=== PATIENT | female | born 1970 | race Hispanic/Latino ===

== ENCOUNTER 2018-04-15 07:37 | Outpatient (CLI) | payer BC, MEDICARE ==
--- NOTE | 2018-04-15 14:04 | Mammography Report ---
BILATERAL DIGITAL SCREENING MAMMOGRAM with CAD: 04/15/18 CLINICAL: Routine screening. COMPARISON:None available. However, a prior mammogram was apparently done at [facility]. FINDINGS: The breasts are heterogeneously dense, which may obscure small masses. A leftasymmetry on the CC view requires comparison with a prior mammogram or additional imaging.No architectural distortion or suspicious calcifications.The right breast is negative. IMPRESSION: Left asymmetry requiring further evaluation. BI-RADS CATEGORY: 0 -- Additional Evaluation Required RECOMMENDATION: Comparison with a previous mammogram. We will attempt to obtain a prior mammogram for comparison. If we do not obtain a prior mammogram within 30 days, a revised report will be issued recommending a recall for additional imaging. Please be advised that the patient should not schedule an appointment for return until adequate time (at least 2 weeks) has passed for us to obtain the prior mammogram. ACR BI-RADS MAMMOGRAPHIC CODES: 0 = Needs additional imaging evaluation; 1 = Negative; 2 = Benign; 3 = Probably benign; 4 = Suspicious; 5 = Malignant; 6 = Known biopsy-proven malignancy COMMENT: 1. Dense breast tissue, i.e., adenosis, fibrocystic changes, etc., may obscure an underlying neoplasm. 2. Approximately 10% of cancers are not detected with mammography. 3. A negative mammography report should not delay biopsy if a clinically suspicious mass is present. COMMENT: Patient follow-up letters are generated via our [employer] application.
== END 2018-04-15 07:38 | disposition home or self-care (01) ==
LOC: MAMMO 07:37
PROVIDERS: ATTEND Internal Medicine
DX: Z12.31 Encounter for screening mammogram for malignant neoplasm of breast (principal); M19.90 Unspecified osteoarthritis, unspecified site
CPT/HCPCS: 77067

== ENCOUNTER 2018-04-27 08:12 | Outpatient (CLI) | payer BC, MEDICARE ==
--- NOTE | 2018-04-27 08:47 | Mammography Report ---
LEFT DIGITAL DIAGNOSTIC MAMMOGRAM : 04/27/18 08:12:00 CLINICAL: Recalled for asymmetry. COMPARISON:04/15/18 screening FINDINGS: Additional mammographic views were performed and are negative. IMPRESSION: Negative Mammogram. BI-RADS CATEGORY: 1 -- Negative RECOMMENDATION: Routine mammographic screening in one year. ACR BI-RADS MAMMOGRAPHIC CODES: 0 = Needs additional imaging evaluation; 1 = Negative; 2 = Benign; 3 = Probably benign; 4 = Suspicious; 5 = Malignant; 6 = Known biopsy-proven malignancy COMMENT: 1. Dense breast tissue, i.e., adenosis, fibrocystic changes, etc., may obscure an underlying neoplasm. 2. Approximately 10% of cancers are not detected with mammography. 3. A negative mammography report should not delay biopsy if a clinically suspicious mass is present. COMMENT: Patient follow-up letters are generated via our [employer] application.
== END 2018-04-27 08:13 | disposition home or self-care (01) ==
LOC: MAMMO 08:12
PROVIDERS: ATTEND Internal Medicine
DX: R92.8 Other abnormal and inconclusive findings on diagnostic imaging of breast (principal); M19.90 Unspecified osteoarthritis, unspecified site; Z87.891 Personal history of nicotine dependence
CPT/HCPCS: 77066

== ENCOUNTER 2019-02-25 09:26 | Outpatient (CLI) | payer BC, MEDICARE ==
[2019-02-25 13:34] LABS: Basophils # (Auto) 0.1 K/mm3 (0.0-0.1); Basophils % (Auto) 2.1 % (0.0-1.8); Eosinophils # (Auto) 0.1 K/mm3 (0.0-0.4); Eosinophils % (Auto) 2.4 % (0.0-4.3); Hematocrit 40.2 % (30.3-42.9); Hemoglobin 13.7 gm/dl (10.1-14.3); Lymphocytes # (Auto) 1.8 K/mm3 (1.2-5.4); Lymphocytes % (Auto) 35.1 % (13.4-35.0); Mean Corpuscular HGB Conc 34 % (30-34); Mean Corpuscular Volume 92 fl (79-97); Monocytes # (Auto) 0.4 K/mm3 (0.0-0.8); Monocytes % (Auto) 8.5 % (0.0-7.3); Platelet Count 264 K/mm3 (140-440); Red Blood Count 4.37 M/mm3 (3.65-5.03); Red Cell Distribution Width 13.6 % (13.2-15.2)
[2019-02-25 14:24] LABS: Alanine Aminotransferase 9 units/L (7-56); Albumin 4.7 g/dL (3.9-5); BUN/Creatinine Ratio 10; Blood Urea Nitrogen 7 mg/dL (7-17); Calcium 9.8 mg/dL (8.4-10.2); Chol/HDL Ratio 4.85 %; HDL Cholesterol 60 mg/dL (40-59); Hemolysis Index 5; LDL Cholesterol,Direct 217 mg/dL (50-130)
[2019-03-01 13:19] LABS: Vitamin D, 25-OH, D2 <4 ng/mL
== END 2019-02-25 09:27 | disposition home or self-care (01) ==
LOC: LAB 09:26
PROVIDERS: ATTEND Internal Medicine
DX: Z13.29 Encounter for screening for other suspected endocrine disorder (principal); D51.9 Vitamin B12 deficiency anemia, unspecified; E55.9 Vitamin D deficiency, unspecified; R73.03 Prediabetes; E78.2 Mixed hyperlipidemia
CPT/HCPCS: 36415; 80053; 80061; 82306; 82607; 83036; 84443; 85025

== ENCOUNTER 2019-05-18 10:59 | Outpatient (CLI) | payer MEDICARE ==
--- NOTE | 2019-05-18 11:38 | XRay Report ---
CHEST 2 VIEWS INDICATION / CLINICAL INFORMATION: R05 COUGH. COMPARISON: None available. FINDINGS: SUPPORT DEVICES: None. HEART / MEDIASTINUM: No significant abnormality. LUNGS / PLEURA: No significant pulmonary or pleural abnormality. No pneumothorax. ADDITIONAL FINDINGS: No significant additional findings. IMPRESSION: No significant abnormality Signer Name: Lowell Fry MD FACR Signed: 05/18/2019 11:33 AM Workstation Name: [email or web address]
== END 2019-05-18 11:00 | disposition home or self-care (01) ==
LOC: XRAY 10:59
PROVIDERS: ATTEND Internal Medicine
DX: R05 Cough (principal)
CPT/HCPCS: 71046

== ENCOUNTER 2021-04-05 09:04 | Outpatient (CLI) | payer MEDICARE ==
[2021-04-05 09:50] LABS: Chol/HDL Ratio 3.3 %
== END 2021-04-05 09:05 | disposition home or self-care (01) ==
LOC: LAB 09:04
PROVIDERS: ATTEND Internal Medicine
DX: E78.2 Mixed hyperlipidemia (principal)
CPT/HCPCS: 36415; 80061

== ENCOUNTER 2021-04-26 08:13 | Outpatient (CLI) | payer MEDICARE ==
[2021-04-26 09:31] LABS: Basophils # (Auto) 0.1 K/mm3 (0.0-0.1); Eosinophils # (Auto) 0.1 K/mm3 (0.0-0.4); Eosinophils % (Auto) 2.5 % (0.0-4.3); Hemoglobin 13.3 gm/dl (10.1-14.3); Lymphocytes # (Auto) 1.9 K/mm3 (1.2-5.4); Lymphocytes % (Auto) 37.7 % (13.4-35.0); Mean Corpuscular HGB Conc 33 % (30-34); Mean Corpuscular Volume 95 fl (79-97); Monocytes # (Auto) 0.3 K/mm3 (0.0-0.8); Platelet Count 261 K/mm3 (140-440); Red Blood Count 4.23 M/mm3 (3.65-5.03); Red Cell Distribution Width 12.7 % (13.2-15.2)
[2021-04-26 09:48] LABS: Alanine Aminotransferase 10 units/L (7-56); Albumin 4.2 g/dL (3.9-5); Blood Urea Nitrogen 13 mg/dL (7-17); Calcium 9.8 mg/dL (8.4-10.2); Hemolysis Index 4
[2021-04-26 10:39] LABS: BUN/Creatinine Ratio 26
--- NOTE | 2021-04-26 11:44 | Mammography Report ---
DIGITAL SCREENING MAMMOGRAM WITH CAD, 04/26/2021 CLINICAL INFORMATION / INDICATION: Routine screening mammography. SCREENING MAMMOGRAM TECHNIQUE: Digital bilateral 2D mammography was obtained in the craniocaudal and mediolateral obliqu e projections. This examination was interpreted with the benefit of Computer-Aided Detection analysis . COMPARISON: 04/15/18 FINDINGS: Breast Density: The breasts are heterogeneously dense, which may obscure small masses. No dominant mass, suspicious calcifications, or architectural distortion in the right breast. Left breast nodule with round shape, circumscribed margins, and equal density. Size is 0.45 cm. Locat ion is 12 o'clock. Depth is middle. Distance from Nipple (cm) is 7.4 cm on the CC view. Nodule is new since 2018. IMPRESSION: Left breast nodule is indeterminate. Recommendation: Left breast ultrasound. Follow up recommendation: Ultrasound BI-RADS Category 0: INCOMPLETE. Needs additional imaging evaluation and/or prior mammograms for felipa rison. A "normal" or negative report should not discourage follow up or biopsy of a clinically significant f inding. A written summary of these findings will be mailed to the patient. The patient will be entered into a mammography reporting system which will generate a reminder letter for the patient's next appointmen t at the appropriate interval. The [employer] recommends yearly mammograms starting at age 40 and continuing as l isabel as a woman is in good health. Breast MRI is recommended for women with an approximate 20-25% or greater lifetime risk of breast cancer, including women with a strong family history of breast or ova millicent cancer or who have been treated for Hodgkin's disease. Signer Name: Concepcion Acevedo MD Signed: 04/26/2021 11:40 AM Workstation Name: [email or web address]
== END 2021-04-26 08:14 | disposition home or self-care (01) ==
LOC: MAMMO 08:13
PROVIDERS: ATTEND Internal Medicine
DX: Z12.31 Encounter for screening mammogram for malignant neoplasm of breast (principal); Z00.00 Encounter for general adult medical examination without abnormal findings; R73.03 Prediabetes; E55.9 Vitamin D deficiency, unspecified; R53.83 Other fatigue
CPT/HCPCS: 36415; 77067; 80053; 82306; 83036; 84443; 85025

== ENCOUNTER 2021-08-28 07:03 | Outpatient (CLI) | payer MEDICARE ==
--- NOTE | 2021-08-28 08:30 | Ultrasound Report ---
ULTRASOUND BREAST LEFT LIMITED, 08/28/2021 CLINICAL INFORMATION / INDICATION: 50-year-old female presents for evaluation of abnormal left screen ing mammogram.. TECHNIQUE: Targeted ultrasound evaluation was performed of the area of interest. COMPARISON: Prior mammogram 04/26/2021 FINDINGS: Sonographic evaluation of the left breast at 12:00 demonstrates a hypoechoic round mass measuring 5 x 4 mm, 6 cm from nipple. It is unclear if this is a solid nodule or complicated cyst. This nodule jain s correlate with mammographic abnormality noted on screening mammogram. Recommend further evaluation with cyst aspiration. If mass does not completely resolve with aspiration, ultrasound-guided biopsy s hould be performed. IMPRESSION: 5 mm hypoechoic mass left breast 12:00. Differential diagnosis includes solid mass versus complicated cyst. Recommend cyst aspiration. If mass does not completely resolve with aspiration, ul trasound-guided biopsy should be performed at that time. Follow up recommendation: Biopsy BI-RADS Category 4: SUSPICIOUS FOR MALIGNANCY. A normal or "negative" report should not preclude biopsy or follow-up of a clinically suspicious find ing. Signer Name: Precious Herrera MD Signed: 08/28/2021 8:09 AM Workstation Name: [email or web address]
== END 2021-08-28 07:04 | disposition home or self-care (01) ==
LOC: US 07:03
PROVIDERS: ATTEND Internal Medicine
DX: N63.21 Unspecified lump in the left breast, upper outer quadrant (principal)

== ENCOUNTER 2021-11-06 09:52 | Emergency (ER) | payer MEDICARE ==
[2021-11-06] MEDS ORDERED: oxyCODONE /ACETAMINOPHEN 5-325MG TAB PO ONE (11:31)
--- NOTE | 2021-11-06 11:31 | Emergency Department Report ---
Stated Complaint: RIGHT KNEE SWOLLEN/BRUISE Time Seen by Provider: 11/06/21 11:28 - HPI History of Present Illness: States that she fell last night and twisted her right knee. States that she has been unable to ambulate on it since then. Presents with pain and swelling to right knee area. - ROS Review of Systems: Right knee pain warmth, swelling, and decreased range of motion. - Exam Physical Exam: Right knee pain and swelling. Distal pulses intact. MSE screening note: Focused history and physical exam performed. Due to findings the following was ordered: Right knee x-ray. Patient will be evaluated in the back by a provider when she goes to room in the back. ED Disposition for MSE Condition: Stable
[2021-11-06 11:42] VITALS: BP 150/82
--- NOTE | 2021-11-06 12:22 | XRay Report ---
RIGHT TIBIA/FIBULA 4 VIEWS INDICATION / CLINICAL INFORMATION: Pain and swelling of right knee/leg after fall. COMPARISON: None available. FINDINGS: BONES and JOINT(S): There are acute fractures of the upper and lower poles of the patella without sig nificant displacement along the lower pole and with mild displacement noted along the upper pole. No dislocation. SOFT TISSUES: Moderate generalized edema is noted with a small joint effusion. ADDITIONAL FINDINGS: None. IMPRESSION: 1. Acute right patellar fractures with associated edema and a small joint effusion. RIGHT KNEE 3 VIEWS INDICATION / CLINICAL INFORMATION: Pain and swelling of right knee/leg after fall. COMPARISON: None available. FINDINGS: BONES and JOINT(S): Acute patellar fractures as above. No other acute fracture or dislocation. No sig nificant arthritis. SOFT TISSUES: Moderate edema of the knee without other significant abnormalities of the soft tissues of the leg. ADDITIONAL FINDINGS: None. IMPRESSION: 1. No acute abnormality of the right tibia/fibula. Signer Name: Jerrell Mcgregor MD Signed: 11/06/2021 12:17 PM Workstation Name: [id number]
--- NOTE | 2021-11-06 13:41 | Emergency Department Report ---
ED Lower Extremity HPI - General Chief Complaint: Extremity Injury, Lower Stated Complaint: RIGHT KNEE SWOLLEN/BRUISE Time Seen by Provider: 11/06/21 11:28 Source: patient Mode of arrival: Wheelchair Limitations: Physical Limitation - History of Present Illness Initial Comments: Patient is a 51-year-old female with a history of bipolar disorder and anxiety who presents to the ED with complaint of acute onset persistent right knee pain and swelling after she lost balance and fell down landing on the right knee 12 hours ago. Patient states that she has not been able to bear weight on the right leg because of worsening right knee pain. Patient denies dizziness, syncope, head or neck injuries, lightheadedness, chest pain or shortness of breath, abdominal pain, low back pain, hip pain, numbness and tingling or weakness of lower extremities bilaterally. MD Complaint: knee injury (right fall), fall -: Sudden, hour(s) (12) Injury: Knee: Right (pain) Type of Injury: blunt Place: home Severity: severe Severity scale (0 -10): 8 Improves With: nothing Worsens With: weight bearing, movement, palpation Context: fall, walking Associated Symptoms: swelling, unable to bear weight. denies: numbness, tingling, able to partially bear weight, ambulatory - Related Data Home Medications Medication Instructions Recorded Confirmed Last Taken ALPRAZolam [Alprazolam] 2 mg PO PRN 03/25/13 12/30/13 03/24/13 Atorvastatin [Lipitor] 20 mg PO QHS 03/25/13 12/30/13 12/29/13 Cyclobenzaprine HCl [FLEXERIL] 10 mg PO TID 03/25/13 12/30/13 12/29/13 Sertraline HCl 100 mg PO QDAY 03/25/13 12/30/13 12/29/13 Previous Rx's Medication Instructions Recorded Last Taken Type Ibuprofen [Motrin] 600 mg PO Q8H PRN #30 tablet 11/06/21 Unknown Rx Oxycodone HCl/Acetaminophen 1 each PO Q6HR PRN #12 tab 11/06/21 Unknown Rx [Percocet 7.5/325 mg] methOCARBAMOL [Robaxin TAB] 750 mg PO Q8H PRN #30 tab 11/06/21 Unknown Rx Allergies Allergy/AdvReac Type Severity Reaction Status Date / Time codeine AdvReac Severe HALLUCINATI Verified 11/06/21 11:41 ONS hasmukh flavor AdvReac Severe HIVES,SWELL Verified 11/06/21 11:41 ING ED Review of Systems ROS: Stated complaint: RIGHT KNEE SWOLLEN/BRUISE Other details as noted in HPI Constitutional: denies: chills, fever Eyes: denies: eye pain, eye discharge, vision change ENT: denies: ear pain, throat pain Respiratory: denies: cough, shortness of breath, wheezing Cardiovascular: denies: chest pain, palpitations Endocrine: no symptoms reported Gastrointestinal: denies: abdominal pain, nausea, diarrhea Genitourinary: denies: urgency, dysuria, discharge Musculoskeletal: joint swelling (right knee), arthralgia (right knee). denies: back pain Skin: denies: rash, lesions Neurological: denies: headache, weakness, paresthesias Psychiatric: denies: anxiety, depression Hematological/Lymphatic: denies: easy bleeding, easy bruising ED Past Medical Hx - Past Medical History Hx Arthritis: Yes (osteoporsis) Hx Psychiatric Treatment: Yes (Bipolar disorder, anxiety and depression) Additional medical history: Mitral prolasp syn. - Surgical History Additional Surgical History: hips - Social History Smoking Status: Current Every Day Smoker Substance Use Type: None - Medications Home Medications: Home Medications Medication Instructions Recorded Confirmed Last Taken Type ALPRAZolam [Alprazolam] 2 mg PO PRN 03/25/13 12/30/13 03/24/13 History Atorvastatin [Lipitor] 20 mg PO QHS 03/25/13 12/30/13 12/29/13 History Cyclobenzaprine HCl [FLEXERIL] 10 mg PO TID 03/25/13 12/30/13 12/29/13 History Sertraline HCl 100 mg PO QDAY 03/25/13 12/30/13 12/29/13 History Ibuprofen [Motrin] 600 mg PO Q8H PRN #30 tablet 11/06/21 Unknown Rx Oxycodone HCl/Acetaminophen 1 each PO Q6HR PRN #12 tab 11/06/21 Unknown Rx [Percocet 7.5/325 mg] methOCARBAMOL [Robaxin TAB] 750 mg PO Q8H PRN #30 tab 11/06/21 Unknown Rx ED Physical Exam - General Limitations: Physical Limitation General appearance: alert, in no apparent distress - Head Head exam: Present: atraumatic, normocephalic, normal inspection - Eye Eye exam: Present: normal appearance, PERRL, EOMI Pupils: Present: normal accommodation - ENT ENT exam: Present: normal exam, normal orophraynx, mucous membranes moist, TM's normal bilaterally, normal external ear exam - Neck Neck exam: Present: normal inspection, full ROM. Absent: tenderness, meningismus - Respiratory Respiratory exam: Present: normal lung sounds bilaterally. Absent: respiratory distress, wheezes, rales, stridor, chest wall tenderness, accessory muscle use - Cardiovascular Cardiovascular Exam: Present: regular rate, normal rhythm, normal heart sounds. Absent: systolic murmur, diastolic murmur, rubs, gallop - GI/Abdominal GI/Abdominal exam: Present: soft, normal bowel sounds. Absent: tenderness, guarding, rebound, hyperactive bowel sounds, organomegaly, mass, bruit - Extremities Exam Extremities exam: Present: normal inspection, tenderness (Palpable right knee tenderness and swelling with crepitus on right patella bone and limited range of motion of right leg due to right knee pain.), normal capillary refill, joint swelling. Absent: full ROM (Limited range of motion due to pain of right knee), pedal edema, calf tenderness - Back Exam Back exam: Present: normal inspection, full ROM. Absent: tenderness, CVA tenderness (R), CVA tenderness (L), muscle spasm, paraspinal tenderness - Neurological Exam Neurological exam: Present: alert, oriented X3, CN II-XII intact, normal gait, reflexes normal - Psychiatric Psychiatric exam: Present: normal affect, normal mood - Skin Skin exam: Present: warm, dry, intact, normal color. Absent: rash ED Course Vital Signs 11/06/21 11:31 Temperature 98.1 F Pulse Rate 60 Respiratory 18 Rate Blood Pressure 150/82 [Left] O2 Sat by Pulse 99 Oximetry ED Lower Extremity MDM - Radiology Data Radiology results: report reviewed, image reviewed [facility] [address] [place] [address] XRay Report Signed Patient: ANNA GIBBS MR#: [id number] : 1970 Acct:[id number] Age/Sex: 51 / F ADM Date: 11/06/21 Loc: ED Attending Dr: Ordering Physician: SUMANTH MEDLEY Date of Service: 11/06/21 Procedure(s): XR knee 3V RT Accession Number(s): [id number] cc: SUMANTH MEDLEY Fluoro Time In Minutes: RIGHT TIBIA/FIBULA 4 VIEWS INDICATION / CLINICAL INFORMATION: Pain and swelling of right knee/leg after fall. COMPARISON: None available. FINDINGS: BONES and JOINT(S): There are acute fractures of the upper and lower poles of the patella without significant displacement along the lower pole and with mild displacement noted along the upper pole. No dislocation. SOFT TISSUES: Moderate generalized edema is noted with a small joint effusion. ADDITIONAL FINDINGS: None. IMPRESSION: 1. Acute right patellar fractures with associated edema and a small joint effusion. RIGHT KNEE 3 VIEWS INDICATION / CLINICAL INFORMATION: Pain and swelling of right knee/leg after fall. COMPARISON: None available. FINDINGS: BONES and JOINT(S): Acute patellar fractures as above. No other acute fracture or dislocation. No significant arthritis. SOFT TISSUES: Moderate edema of the knee without other significant abnormalities of the soft tissues of the leg. ADDITIONAL FINDINGS: None. IMPRESSION: 1. No acute abnormality of the right tibia/fibula. Signer Name: Jerrell Mcgregor MD Signed: 11/06/2021 12:17 PM Workstation Name: [id number] Transcribed By: [place] Dictated By: Jerrell Mcgregor MD Electronically Authenticated By: Jerrell Mcgregor MD Signed Date/Time: 11/06/211216 DD/ 14 TD/TT: - Medical Decision Making This is a 51-year-old female with a history of bipolar disorder and anxiety who presents to the ED with complaint of acute onset persistent right knee pain and swelling after she lost balance and fell down landing on the right knee 12 hours ago. Patient states that she has not been able to bear weight on the right leg because of worsening right knee pain. In the ED, patient is alert and oriented x3 and is not in any distress. Patient was treated for pain in the ED. Right knee x-ray showed acute right patellar fractures with associated edema and a small joint effusion. Right tib-fib x-ray showed no acute fractures or subluxations. Patient right knee was splinted with knee immobilizer and the patient was fitted with crutches. On reevaluation, patient is neurovascularly intact. Patient was discharged home on pain medications and given a referral to the orthopedic surgeon Dr.Willimon Mojica for reevaluation. Patient was advised to contact Dr. Mojica's office first in the morning on , November 07, 2021 to schedule a follow-up appointment. Patient was advised to return to the ED immediately if symptoms get worse. - Differential Diagnosis Right knee fracture; muscle strain; leg contusion Critical care attestation.: If time is entered above; I have spent that time in minutes in the direct care of this critically ill patient, excluding procedure time. ED Disposition Clinical Impression: Muscle strain of right lower extremity Qualifiers: Encounter type: initial encounter Qualified Code(s): S86.911A - Strain of unspecified muscle(s) and tendon(s) at lower leg level, right leg, initial encounter Closed displaced fracture of right patella Qualifiers: Encounter type: initial encounter Fracture morphology: comminuted Qualified Code(s): S82.041A - Displaced comminuted fracture of right patella, initial encounter for closed fracture Disposition: 01 HOME / SELF CARE / HOMELESS Is pt being admited?: No Does the pt Need Aspirin: No Condition: Stable Instructions: Cast or Splint Care, Adult, [id number], Muscle Strain, [id number], Crutch Use, Adult, [id number], Patellar Fracture, Adult Additional Instructions: The right knee x-ray showed displaced right patella fracture. Therefore take pain medication as needed with food, drink plenty of fluids, follow-up with the orthopedic surgeon Dr. Mojica as advised. Contact Dr. Mojica's office first thing in the morning on , November 07, 2021 to schedule a follow-up appointment. Return to the ED immediately if symptoms get worse. Prescriptions: Ibuprofen [Motrin] 600 mg PO Q8H PRN #30 tablet PRN Reason: Pain Oxycodone HCl/Acetaminophen [Percocet 7.5/325 mg] 1 each PO Q6HR PRN #12 tab PRN Reason: Pain methOCARBAMOL [Robaxin TAB] 750 mg PO Q8H PRN #30 tab PRN Reason: Muscle Spasm Referrals: LEONOR CRUZ MD [Primary Care Provider] - 3-5 Days TONY SILVA MD [Referring] - 3-5 Days Forms: Work/School Release Form(ED) Time of Disposition: 13:47 Print Language: BELGIAN
== END 2021-11-06 14:51 | disposition home or self-care (01) ==
LOC: ED 09:52
DX: S82.001A Unspecified fracture of right patella, initial encounter for closed fracture (principal); S86.911A Strain of unspecified muscle(s) and tendon(s) at lower leg level, right leg, initial encounter; M81.0 Age-related osteoporosis without current pathological fracture; F41.9 Anxiety disorder, unspecified; F32.9 Major depressive disorder, single episode, unspecified; Z98.890 Other specified postprocedural states; F17.290 Nicotine dependence, other tobacco product, uncomplicated; Z88.5 Allergy status to narcotic agent; Z91.018 Allergy to other foods; X37.1XXA Tornado, initial encounter; Y93.89 Activity, other specified; Y92.89 Other specified places as the place of occurrence of the external cause; Y99.8 Other external cause status
CPT/HCPCS: 99283